=== PATIENT | female | born 1980 | race Caucasian/White ===

== ENCOUNTER 2018-06-21 23:33 | Emergency (ER) | payer BC ==
[~2018-06-21 23:33] MED LIST: Promethazine 25 MG Tab PO ONE
[2018-06-21] MEDS ORDERED: LORazepam 1 MG Tab PO ONE (23:59)
[2018-06-22] MEDS ORDERED: Promethazine 25 MG Tab PO ONE (00:04)
--- NOTE | 2018-06-22 00:05 | EDM.PDOC ---
ED HPI GENERAL MEDICAL PROBLEM - General Chief Complaint: Behavioral/Psych Stated Complaint: CAN'T SLEEP Time Seen by Provider: 06/21/18 23:39 - History of Present Illness INITIAL COMMENTS - FREE TEXT/NARRATIVE: HISTORY AND PHYSICAL: History of present illness: The patient is a 37-year-old female with a known history of PTSD and anxiety and has seen her provider back at home in [place] and has been treated with lorazepam and Ambien and is currently in town due to her father and the recent of her father and says that her anxiety is kicked up and she hasn't been sleeping for the last 4 days. She's also had some nausea and some vomiting as well as some vague aches and pains. She is here with her family member who is very supportive and she is planning on staying in the area and needs to get follow-up to get further care and medications. She said she just recently started with his doctor in [place] and she had prescriptions available to her but was unable to access them because her car battery did not start. She is here for some help. According to the nurse the patient has a line fold on as being in the hospital and seen the hospital triggers more anxiety and PTSD with the recent loss of her father. Review of systems: As per history of present illness and below otherwise all systems reviewed and negative. Past medical history: As per history of present illness and as reviewed below otherwise noncontributory. Surgical history: As per history of present illness and as reviewed below otherwise noncontributory. Social history: No reported history of drug or alcohol abuse. Family history: As per history of present illness and as reviewed below otherwise noncontributory. Physical exam: General: Well-developed well-nourished female who is nontoxic and has a black band around her eyes. Vital signs were noted by me HEENT: Atraumatic, normocephalic, negative for conjunctival pallor or scleral icterus, mucous membranes moist, throat clear, neck supple, nontender, trachea midline. Lungs: Clear to auscultation, breath sounds equal bilaterally, chest nontender. Heart: S1S2, regular rhythm and tachycardic rate on my evaluation but no overt murmurs Abdomen: Soft, nondistended, nontender. NABS Pelvis: Deferred Genitourinary: Deferred. Rectal: Deferred. Extremities: Atraumatic, full range of motion without defects or deformities Neurovascular unremarkable. Neuro: Awake, alert, oriented. Cranial nerves II through XII unremarkable. Cerebellum unremarkable. Motor and sensory unremarkable throughout. Exam nonfocal. Diagnostics: [] Therapeutics: Phenergan and Ativan I discussed with the patient that we are not capable of writing long-term prescriptions for her and that she would need to get connected in our clinic or reconnect with her doctor if she is going back home. I will give her a small amount of Ativan that she can take and fill the prescription tomorrow and I will give her 1 dose here. She would like something for nausea and says that Zofran does not work so I will give her a dose of Phenergan. That is what she requesting. Impression: Anxiety and PTSD with insomnia Definitive disposition and diagnosis as appropriate pending reevaluation and review of above. abdominal Pain Score (Numeric/FACES): 4 - Related Data Allergies Allergy/AdvReac Type Severity Reaction Status Date / Time acetaminophen [From Tylenol] Allergy Abdominal Verified 06/21/18 23:46 Pain Home Meds: Home Meds LORazepam [Ativan] 0 mg PO 06/21/18 [History] Zolpidem Tartrate [Ambien] 10 mg PO 06/21/18 [History] Past Medical History HEENT History: Reports: None Cardiovascular History: Reports: None Respiratory History: Reports: None Gastrointestinal History: Reports: None Genitourinary History: Reports: None FAMILY SERVICE WORKER History: Reports: None Musculoskeletal History: Reports: None Neurological History: Reports: None Psychiatric History: Reports: Anxiety, Depression, PTSD Endocrine/Metabolic History: Reports: None Hematologic History: Reports: None Immunologic History: Reports: None Oncologic (Cancer) History: Reports: None Dermatologic History: Reports: None - Infectious Disease History Infectious Disease History: Reports: None - Past Surgical History Head Surgeries/Procedures: Reports: None Social & Family History - Family History Family Medical History: Noncontributory - Tobacco Use Smoking Status *Q: Current Every Day Smoker Years of Tobacco use: 10 Packs/Tins Daily: 1 - Recreational Drug Use Recreational Drug Use: No ED ROS GENERAL - Review of Systems Review Of Systems: ROS reveals no pertinent complaints other than HPI. ED EXAM, GENERAL - Physical Exam Exam: See Below (See dictation) Course - Vital Signs Last Recorded V/S: Last Vital Signs Temp 36.7 C 06/21/18 23:48 Pulse 116 H 06/21/18 23:48 Resp 18 06/21/18 23:48 BP 159/93 H 06/21/18 23:48 Pulse Ox 97 06/21/18 23:48 - Orders/Labs/Meds Meds: Medications Discontinued Medications Generic Name Dose Route Start Last Admin Trade Name Bill PRN Reason Stop Dose Admin Lorazepam 1 mg 06/21/18 23:59 Ativan PO 06/22/18 00:00 ONETIME ONE Promethazine HCl 25 mg 06/21/18 00:00 Phenergan PO 06/21/18 00:01 ONETIME ONE Departure - Departure Time of Disposition: 00:04 Disposition: Home, Self-Care 01 Condition: Good Clinical Impression: Anxiety Insomnia Qualifiers: Insomnia type: unspecified Qualified Code(s): G47.00 - Insomnia, unspecified - Discharge Information Referrals: PCP,None [Primary Care Provider] - Additional Instructions: The following information is given to patients seen in the emergency department who are being discharged to home. This information is to outline your options for follow-up care. We provide all patients seen in our emergency department with a follow-up referral. The need for follow-up, as well as the timing and circumstances, are variable depending upon the specifics of your emergency department visit. If you don't have a primary care physician on staff, we will provide you with a referral. We always advise you to contact your personal physician following an emergency department visit to inform them of the circumstance of the visit and for follow-up with them and/or the need for any referrals to a consulting specialist. The emergency department will also refer you to a specialist when appropriate. This referral assures that you have the opportunity for followup care with a specialist. All of these measure are taken in an effort to provide you with optimal care, which includes your followup. Under all circumstances we always encourage you to contact your private physician who remains a resource for coordinating your care. When calling for followup care, please make the office aware that this follow-up is from your recent emergency room visit. If for any reason you are refused follow-up, please contact the [facility] emergency department at and ask to speak to the emergency department charge nurse. [facility] Primary care- Internal Medicine and Family [facility] [address] [place] [phone] Please contact the clinic on Saturday morning at 8 AM to schedule a follow-up appointment for further care and evaluation and return to ER as needed and as discussed. Try to reduce stressors reduce caffeine intake and push hydration. Use the Ativan you have been prescribed as needed and also try other nonprescription ways of trying to get some rest and sleep.
== END 2018-06-22 00:18 | disposition home or self-care (01) ==
LOC: MW.ED 23:33
DX: F41.9 Anxiety disorder, unspecified (principal); F43.10 Post-traumatic stress disorder, unspecified; G47.00 Insomnia, unspecified; F17.210 Nicotine dependence, cigarettes, uncomplicated; Z88.8 Allergy status to other drugs, medicaments and biological substances
CPT/HCPCS: 99283; A9270